=== PATIENT | female | born 1935 | race Caucasian/White ===

== ENCOUNTER 2017-03-23 07:27 | Inpatient (IN) | payer MEDICARE, BC, OTHER ==
[2017-03-23] VITALS (58 sets, daily range): BP systolic 71–161; BP diastolic 41–96
[~2017-03-23] VITALS: Ht 162.6 cm; Wt 98.1 kg
[~2017-03-23 07:27] MED LIST: ALPRAZOLAM0.25 MG PO; AVELOX400 MG PO; CARDIZEM CD 180 PO; CIPRO500 MG PO; CIPROFLOXACN500 MG PO; COUMADIN1 MG PO; COUMADIN2 MG PO; COUMADIN2.5 MG PO; CRANBERRY425 M1 PO; DOCUSATE SOD100 M2 PO; FISH OIL1000 MG PO; FLUOXETINE10 M2 PO; FUROSEMIDE40 MG PO; LIPITOR10 M1 PO; LIPITOR10 MG PO; LISINOPRIL10 MG PO; LORTAB 5 OR; METOPROLOL TAR100 MG PO; MULTI VIT PO; NEURONTIN300 MG PO; NORCO1 TA1 PO; NORCO1 TAB PO; PREMARIN VAG0.625 MG VA; PROVIGIL200 MG PO; PROZAC20 MG PO; RANITIDINE150 M1 PO; TESSALON200 MG PO; XANAX0.5 MG OR; ZITHROMAX500 MG PO; ZOLOFT50 MG PO; ZOSTAVAX IM
[2017-03-23 08:01] LABS: HEMATOCRIT 38.5 % (37.0-47.0); HEMOGLOBIN 12.6 g/dl (12.0-16.0); IMMATURE GRANULOCYTES 1.2 % (0.0-1.0); MEAN CELL VOLUME 99.5 fL CALC (80.0-100.0); MEAN CORPUSCULAR HGB 32.6 pG CALC (26.0-32.0); MEAN CORPUSCULAR HGB CONC 32.7 g/L CALC (32.0-36.0); PLATELET COUNT 118 thou/uL (130-400); RED BLOOD COUNT 3.87 mill/uL (4.20-5.60); RED CELL DISTRI WIDTH 14.2 % (11.5-15.5)
[2017-03-23 08:07] LABS: INTERNATIONAL NORMALIZED RATIO 2.3 RATIO (0.7-1.3); PROTHROMBIN TIME 26.1 SECONDS (9.0-12.5)
[2017-03-23 08:10] LABS: ALBUMIN 3.6 g/dL (3.2-5.0); CALCIUM 8.9 mg/dL (8.4-10.2); CREATININE 1.5 mg/dL (0.5-1.0); POTASSIUM 4.3 mmol/l (3.5-5.1); TOTAL PROTEIN 7.1 g/dL (6.3-8.2)
[2017-03-23 08:48] LABS: BAND 67 % (0-8); MANUAL DIFFERENTIAL YES
[2017-03-23] MEDS ORDERED: LORCET HD 10-321 TAB PO (08:49)
[2017-03-23 08:53] LABS: URINE BILIRUBIN - DIPSTICK NEGATIVE (NEGATIVE); URINE BLOOD DIPSTICK LARGE (NEGATIVE); URINE COLOR YELLOW; URINE GLUCOSE - DIPSTICK NEGATIVE (NEGATIVE); URINE KETONE TRACE mg/dL (NEGATIVE); URINE PROTEIN - DIPSTICK 100 mg/dL (NEG-TRACE); URINE SPECIFIC GRAVITY 1.025
[2017-03-23 08:55] LABS: URINE CLARITY CLOUDY; URINE LEUK ESTERASE MODERATE (NEGATIVE); URINE NITRITE - DIPSTICK POSITIVE (Negative)
[2017-03-23] MEDS ORDERED: SCOT-TUSSI10 MG/5 ML PO (08:56)
[2017-03-23 08:57] LABS: AMYLASE < 30 u/l (30-110); LIPASE < 10 u/l (23-300)
[2017-03-23] MEDS ORDERED: ZOFRAN4 MG/TAB PO (08:57)
[2017-03-23 09:03] LABS: URINE BACTERIA MANY hpf; URINE RBC TNTC RBC/hpf (0-5); URINE SQUAMOUS EPITHELIAL CELL FEW EPI/hpf (0-FEW); URINE WBC TNTC WBC/hpf (0-5)
[2017-03-23] MEDS ORDERED: CIPROFLOXACN250 MG PO (09:20)
[2017-03-23] MEDS ORDERED: LOPRESSOR 550 MG/TAB PO (16:46)
[2017-03-24] VITALS (49 sets, daily range): BP systolic 81–178; BP diastolic 49–114
[2017-03-24 08:44] LABS: HEMATOCRIT 33.6 % (37.0-47.0); HEMOGLOBIN 10.7 g/dl (12.0-16.0); MEAN CELL VOLUME 101.8 fL CALC (80.0-100.0); MEAN CORPUSCULAR HGB 32.4 pG CALC (26.0-32.0); MEAN CORPUSCULAR HGB CONC 31.8 g/L CALC (32.0-36.0); PLATELET COUNT 77 thou/uL (130-400); RED CELL DISTRI WIDTH 15.2 % (11.5-15.5)
[2017-03-24 08:48] LABS: IMMATURE GRANULOCYTES 6.5 % (0.0-1.0)
[2017-03-24 08:49] LABS: MANUAL DIFFERENTIAL YES
[2017-03-24 08:59] LABS: INTERNATIONAL NORMALIZED RATIO 3.4 RATIO (0.7-1.3); PROTHROMBIN TIME 40.1 SECONDS (9.0-12.5)
[2017-03-24 09:01] LABS: BILIRUBIN, TOTAL 0.8 mg/dL (0.0-1.4); CALCIUM 7.6 mg/dL (8.4-10.2); CREATININE 1.3 mg/dL (0.5-1.0); POTASSIUM 4.4 mmol/l (3.5-5.1); TOTAL PROTEIN 6.2 g/dL (6.3-8.2)
[2017-03-24 09:15] LABS: BAND 22 % (0-8)
[2017-03-24 09:16] LABS: DOHLE BODIES FEW; PLATELET ESTIMATE MOD DECREASE; VACULATED NEUTROPHILS FEW
[2017-03-25] VITALS (20 sets, daily range): BP systolic 129–178; BP diastolic 71–113
[2017-03-25 06:24] LABS: HEMATOCRIT 31.7 % (37.0-47.0); HEMOGLOBIN 10.3 g/dl (12.0-16.0); MEAN CELL VOLUME 101.6 fL CALC (80.0-100.0); MEAN CORPUSCULAR HGB CONC 32.5 g/L CALC (32.0-36.0); NEUT# 20.07 thou/uL (2.00-7.15); RED BLOOD COUNT 3.12 mill/uL (4.20-5.60); RED CELL DISTRI WIDTH 15.8 % (11.5-15.5)
[2017-03-25 06:30] LABS: CALCIUM 8.1 mg/dL (8.4-10.2); CREATININE 1.1 mg/dL (0.5-1.0); POTASSIUM 4.1 mmol/l (3.5-5.1)
[2017-03-25 06:39] LABS: INTERNATIONAL NORMALIZED RATIO 4.7 RATIO (0.7-1.3); PROTHROMBIN TIME 58.1 SECONDS (9.0-12.5)
[2017-03-26] VITALS (11 sets, daily range): BP systolic 117–171; BP diastolic 53–88
[2017-03-26 06:19] LABS: HEMATOCRIT 30.2 % (37.0-47.0); HEMOGLOBIN 10.2 g/dl (12.0-16.0); IMMATURE GRANULOCYTES 0.6 % (0.0-1.0); MEAN CELL VOLUME 98.1 fL CALC (80.0-100.0); MEAN CORPUSCULAR HGB 33.1 pG CALC (26.0-32.0); MEAN CORPUSCULAR HGB CONC 33.8 g/L CALC (32.0-36.0); NEUT# 16.78 thou/uL (2.00-7.15); RED BLOOD COUNT 3.08 mill/uL (4.20-5.60); RED CELL DISTRI WIDTH 15.6 % (11.5-15.5)
[2017-03-26 06:30] LABS: INTERNATIONAL NORMALIZED RATIO 1.4 RATIO (0.7-1.3); PROTHROMBIN TIME 15.5 SECONDS (9.0-12.5)
[2017-03-26 06:39] LABS: ALBUMIN 2.5 g/dL (3.2-5.0); BILIRUBIN, TOTAL 1.1 mg/dL (0.0-1.4); CALCIUM 8.5 mg/dL (8.4-10.2); CREATININE 1.1 mg/dL (0.5-1.0); POTASSIUM 3.8 mmol/l (3.5-5.1); TOTAL PROTEIN 5.8 g/dL (6.3-8.2)
== END 2017-03-26 18:50 | disposition hospice, inpatient (51) | DRG 871 ==
LOC: ENPENDDIS → ED 07:27 → ED-I 09:30 → ED 10:22 → ICU 10:23
PROVIDERS: Emergency Medicine; Internal Medicine; ADMIT Internal Medicine; ATTEND Internal Medicine
PROC: 0T9B70Z Drainage of Bladder with Drainage Device, Via Natural or Artificial Opening (ICD-10-PCS; principal; 2017-03-23)
PROC: 02HV33Z Insertion of Infusion Device into Superior Vena Cava, Percutaneous Approach (ICD-10-PCS; 2017-03-23)
DX: A41.9 Sepsis, unspecified organism (principal); R65.21 Severe sepsis with septic shock; E43 Unspecified severe protein-calorie malnutrition; G93.49 Other encephalopathy; J18.9 Pneumonia, unspecified organism; D69.6 Thrombocytopenia, unspecified; I69.951 Hemiplegia and hemiparesis following unspecified cerebrovascular disease affecting right dominant side; E87.5 Hyperkalemia; N39.0 Urinary tract infection, site not specified; N20.2 Calculus of kidney with calculus of ureter; I48.91 Unspecified atrial fibrillation; I69.920 Aphasia following unspecified cerebrovascular disease; K56.41 Fecal impaction; K43.9 Ventral hernia without obstruction or gangrene; I10 Essential (primary) hypertension; M79.7 Fibromyalgia; F32.9 Major depressive disorder, single episode, unspecified; M06.9 Rheumatoid arthritis, unspecified; Z66 Do not resuscitate; Z85.3 Personal history of malignant neoplasm of breast; Z79.01 Long term (current) use of anticoagulants; Z68.35 Body mass index [BMI] 35.0-35.9, adult
CPT/HCPCS: J0282; J0692; J1160; S0164